=== PATIENT | female | born 1985 | race Caucasian/White ===

== ENCOUNTER 2020-10-03 14:00 | Emergency (ER) | payer MEDICARE ==
[~2020-10-03] VITALS: Ht 175.3 cm; Wt 76.4 kg
[2020-10-03 14:32] VITALS: Ht 175.3 cm; Wt 76.4 kg
[2020-10-03 15:30] LABS: CALC OSMOLALITY 277 mosm/kg (275-300); CALCIUM 8.5 mg/dL (8.5-10.1); CARBON DIOXIDE 25.3 mmol/L (21.0-32.0); CHLORIDE - SERUM 107 mmol/L (98-107); CREATININE - SERUM 0.7 mg/dL (0.6-1.3); GLUCOSE 91 mg/dL (74-106); POTASSIUM - SERUM 4.1 mmol/L (3.5-5.1); SODIUM 140 mmol/L (136-145); UREA NITROGEN 9 mg/dL (7-18); eGFR NON AFRICAN AMERICAN > 90 mL/min (90-120)
[2020-10-03 15:31] LABS: BASOPHILS 0.3 % (0-2); EOSINOPHILS 0.9 % (0-7); HEMATOCRIT 34.7 % (36.0-48.0); HEMOGLOBIN 11.4 g/dL (12-16); MCH 28.9 pg (26.0-34.0); MCHC 32.9 g/dL (31.0-37.0); MCV 88.1 fL (80.0-100.0); MEAN PLATELET VOLUME 8.3 fL (7.4-10.4); MONOCYTES 10.4 % (2-11); NEUTROPHILS 70.4 % (40-80); PLATELET COUNT 229 10x3/uL (130-400); RBC 3.94 10x6/uL (4.00-5.40); RDW 13.2 % (11.5-14.5)
[2020-10-03 15:38] LABS: ALBUMIN 3.4 g/dL (3.4-5.0); ALKALINE PHOSPHATASE 56 U/L (30-120); ALT (SGPT) 16 U/L (10-68); PROTEIN - SERUM 6.7 g/dL (6.4-8.2)
[2020-10-03] MEDS ORDERED: FLORASTOR250 MG PO (19:40)
[2020-10-03] MEDS ORDERED: AUGMENTIN 875-11 TAB PO (19:40)
[2020-10-03 20:07] VITALS: BP 115/76
== END 2020-10-03 20:09 | disposition home or self-care (01) ==
LOC: D.ER 14:00
PROVIDERS: Family Medicine
DX: K08.89 Other specified disorders of teeth and supporting structures (principal); L03.211 Cellulitis of face